=== PATIENT | female | born 1990 | race American Indian/Alaskan Native ===

== ENCOUNTER 2020-10-14 11:54 | Outpatient (CLI) | payer MEDICAID ==
[2020-10-14 15:35] VITALS: BP 111/61
== END 2020-10-14 15:42 | disposition home or self-care (01) ==
LOC: LAB 11:54 → APU 15:22 → LAB 15:42
PROVIDERS: ATTEND Obstetrics & Gynecology
DX: O26.891 Other specified pregnancy related conditions, first trimester (principal); Z67.11 Type A blood, Rh negative; Z3A.01 Less than 8 weeks gestation of pregnancy
CPT/HCPCS: 86850; 86900; 86901; 96372; J2790

== ENCOUNTER 2020-10-20 22:52 | Emergency (ER) | payer MEDICAID ==
[2020-10-20 23:07] VITALS: BP 121/76
--- NOTE | 2020-10-20 23:37 | Emergency Department Report ---
ED HPI - General Chief complaint: Vaginal Bleeding Stated complaint: POSS MISCARRIAGE Source: patient Mode of arrival: Ambulatory Limitations: No Limitations - History of Present Illness Initial comments: 30-year-old -[place] female with approximate 7 weeks 4 para 2 with 1 miscarriage presents to the emergency room stating that she woke up 30 minutes just prior to arrival with cramping and vaginal bleeding. Patient states she is probably soaked maybe 1 pad. She states that the cramps are very mild and intermittent. She reports her last menstrual period was 08/24/2020. Has had no complications up to today. In previous pregnancies no complications. Patient reports that she was seen on 10/14/2020 by my OB and receive her RhoGam injection. Patient states that she is taking her vitamins. She denies any dysuria no chest pain or shortness of breathing no malaise no headache no nausea no vomiting. MD Complaint: abdominal pain, vaginal bleeding -: minutes(s) (30) Location: pelvis Radiation: none Severity scale (0 -10): 1 Quality: cramping Consistency: intermittent Improves with: none Worsens with: none Associated symptoms: vaginal bleeding, abdominal pain. denies: nausea/vomiting, vaginal discharge, dysuria, headache, vision changes, shortness of breath, weakness Vaginal bleeding: light :: Yes Number of weeks : 7 OB History - Current : no complications OB History - Previous Pregnancies: no complications Last menstrual period: 08/24/20 Pre- care: followed by OB ([facility]) - Related Data : 4 Para: 2 Ab: 1 Home Medications Medication Instructions Recorded Confirmed Last Taken Vit-Fe Fumar-FA [ 1 tab PO QDAY 07/05/15 11/11/15 1 Day Ago Vitamin] ~10/11/15 1 tab metroNIDAZOLE [Flagyl] 500 mg PO Q12HR 11/11/15 11/11/15 Unknown Previous Rx's Medication Instructions Recorded Last Taken Type Ibuprofen [Motrin 800 MG tab] 800 mg PO Q8HR PRN #30 tablet 11/13/15 Unknown Rx oxyCODONE /ACETAMINOPHEN [Percocet 2 tab PO Q6HR PRN #30 tablet 11/13/15 Unknown Rx 5/325] Allergies Allergy/AdvReac Type Severity Reaction Status Date / Time No Known Allergies Allergy Unverified 07/05/15 22:37 ED Review of Systems ROS: Stated complaint: POSS MISCARRIAGE Other details as noted in HPI Comment: All other systems reviewed and negative Constitutional: denies: chills, fever Eyes: denies: eye pain, eye discharge, vision change ENT: denies: ear pain, throat pain Respiratory: denies: cough, shortness of breath, wheezing Cardiovascular: denies: chest pain, palpitations Endocrine: no symptoms reported Gastrointestinal: denies: abdominal pain, nausea, diarrhea Genitourinary: denies: urgency, dysuria, discharge Musculoskeletal: denies: back pain, joint swelling, arthralgia Skin: denies: rash, lesions Neurological: denies: headache, weakness, paresthesias Psychiatric: denies: anxiety, depression Hematological/Lymphatic: denies: easy bleeding, easy bruising ED Past Medical Hx - Past Medical History Hx Hypertension: No Hx Congestive Heart Failure: No Hx Diabetes: No Hx Deep Vein Thrombosis: No Hx Renal Disease: No Hx Sickle Cell Disease: No Hx Seizures: No Hx Asthma: No Hx COPD: No Hx HIV: No - Social History Smoking Status: Never Smoker - Medications Home Medications: Home Medications Medication Instructions Recorded Confirmed Last Taken Type Vit-Fe Fumar-FA [ 1 tab PO QDAY 07/05/15 11/11/15 1 Day Ago History Vitamin] ~10/11/15 1 tab metroNIDAZOLE [Flagyl] 500 mg PO Q12HR 11/11/15 11/11/15 Unknown History Ibuprofen [Motrin 800 MG tab] 800 mg PO Q8HR PRN #30 tablet 11/13/15 Unknown Rx oxyCODONE /ACETAMINOPHEN [Percocet 2 tab PO Q6HR PRN #30 tablet 11/13/15 Unknown Rx 5/325] ED Physical Exam - General Limitations: No Limitations General appearance: alert, in no apparent distress - Head Head exam: Present: atraumatic, normocephalic - Eye Eye exam: Present: normal appearance - ENT ENT exam: Present: mucous membranes moist - Neck Neck exam: Present: normal inspection - Respiratory Respiratory exam: Present: normal lung sounds bilaterally. Absent: respiratory distress - Cardiovascular Cardiovascular Exam: Present: regular rate, normal rhythm. Absent: systolic murmur, diastolic murmur, rubs, gallop - GI/Abdominal GI/Abdominal exam: Present: soft, normal bowel sounds - Extremities Exam Extremities exam: Present: normal inspection - Back Exam Back exam: Present: normal inspection - Neurological Exam Neurological exam: Present: alert, oriented X3 - Psychiatric Psychiatric exam: Present: normal affect, normal mood - Skin Skin exam: Present: warm, dry, intact, normal color. Absent: rash ED Course Vital Signs 10/20/20 23:04 Temperature 98.6 F Pulse Rate 90 Respiratory 18 Rate Blood Pressure 121/76 O2 Sat by Pulse 98 Oximetry ED Medical Decision Making - Lab Data Result diagrams: 10/20/20 23:22 10/20/20 23:22 - Radiology Data Radiology results: report reviewed [facility] [address] [place] [address] Ultrasound Report Signed Patient: AMNA ROUSE MR #: [id number] : 1990 Acct:[id number] Age/Sex: 30 / F ADM Date: 10/20/20 Loc: ED Attending Dr: Ordering Physician: SUNNY PECK Date of Service: 10/20/20 Procedure(s): US OB <= 14 weeks fetus Accession Number(s): [id number] cc: SUNNY PECK ULTRASOUND OBSTETRIC INDICATION / CLINICAL INFORMATION: 2 months with cramping and vaginal bleedi. Clinical Gestational Age (GA) in weeks, days: 8.1 TECHNIQUE: Transabdominal. COMPARISON: None available. FINDINGS: GESTATIONAL SAC: Well-defined oval shape and intrauterine in location. YOLK SAC: No significant abnormality. EMBRYO/FETUS: No significant abnormality. - [place]-Rump Length = 0.34 cm = 6.0 weeks, days - Heart Rate, beats per minute (if present) = not well seen ADNEXA: No significant abnormality. FREE FLUID: None. ADDITIONAL FINDINGS: None. IMPRESSION: 1. Single intrauterine with estimated sonographic age of 6.0 weeks, days. I am unable to definitively documented heart tones. Short-term follow-up imaging is recommended to document viability. Signer Name: Ravi Meza MD Signed: 10/21/2020 1:42 AM Workstation Name: [id number] Transcribed By: SS Dictated By: Ravi Meza MD Electronically Authenticated By: Ravi Meza MD Signed Date/Time: 10/21/20141 DD/ 0127 TD/TT: Print Cancel - Medical Decision Making 30-year-old -[place] female with approximate 7 weeks 4 para 2 with 1 miscarriage presents to the emergency room stating that she woke up 30 minutes just prior to arrival with cramping and vaginal bleeding. Patient states she is probably soaked maybe 1 pad. She states that the cramps are very mild and intermittent. She reports her last menstrual period was 08/24/2020. Has had no complications up to today. In previous pregnancies no complications. Patient reports that she was seen on 10/14/2020 by my OB and receive her RhoGam injection. Patient states that she is taking her vitamins. She denies any dysuria no chest pain or shortness of breathing no malaise no headache no nausea no vomiting. Vaginal bleeding protocol has been initiated. Critical care attestation.: If time is entered above; I have spent that time in minutes in the direct care of this critically ill patient, excluding procedure time. ED Disposition Clinical Impression: Threatened miscarriage in early Disposition: DC-01 TO HOME OR SELFCARE Is pt being admited?: No Does the pt Need Aspirin: No Condition: Stable Instructions: Vaginal Bleeding During , First Trimester, Threatened Miscarriage Additional Instructions: US shows a 6 week embryo. Recommend to follow up this week with [facility]. Return to the ER if you have any worsening bleeding with worsening pelvic cramping. Referrals: PRIMARY CARE, [Primary Care Provider] - 3-5 Days [facility] [Provider Group] - 3-5 Days Forms: Work/School Release Form(ED)
[2020-10-20 23:51] LABS: Basophils % (Auto) 0.3 % (0.0-1.8); Eosinophils # (Auto) 0.1 K/mm3 (0.0-0.4); Eosinophils % (Auto) 0.8 % (0.0-4.3); Hematocrit 34.6 % (30.3-42.9); Hemoglobin 11.4 gm/dl (10.1-14.3); Lymphocytes # (Auto) 1.9 K/mm3 (1.2-5.4); Lymphocytes % (Auto) 24.8 % (13.4-35.0); Mean Corpuscular HGB Conc 33 % (30-34); Mean Corpuscular Volume 91 fl (79-97); Monocytes # (Auto) 0.9 K/mm3 (0.0-0.8); Monocytes % (Auto) 12.1 % (0.0-7.3); Platelet Count 231 K/mm3 (140-440); Red Blood Count 3.82 M/mm3 (3.65-5.03); Red Cell Distribution Width 13.5 % (13.2-15.2)
[2020-10-21 00:08] LABS: Blood Urea Nitrogen 15 mg/dL (7-17); Calcium 9.1 mg/dL (8.4-10.2); Hemolysis Index 5
[2020-10-21 00:10] LABS: BUN/Creatinine Ratio 21
--- NOTE | 2020-10-21 01:46 | Ultrasound Report ---
ULTRASOUND OBSTETRIC INDICATION / CLINICAL INFORMATION: 2 months with cramping and vaginal bleedi. Clinical Gestational Age (GA) in weeks, days: 8.1 TECHNIQUE: Transabdominal. COMPARISON: None available. FINDINGS: GESTATIONAL SAC: Well-defined oval shape and intrauterine in location. YOLK SAC: No significant abnormality. EMBRYO/FETUS: No significant abnormality. - [place]Rump Length = 0.34 cm = 6.0 weeks, days - Heart Rate, beats per minute (if present) = not well seen ADNEXA: No significant abnormality. FREE FLUID: None. ADDITIONAL FINDINGS: None. IMPRESSION: 1. Single intrauterine with estimated sonographic age of 6.0 weeks, days. I am unable to d efinitively documented heart tones. Short-term follow-up imaging is recommended to document via bility. Signer Name: Ravi Meza MD Signed: 10/21/2020 1:42 AM Workstation Name: [id number]
== END 2020-10-21 02:00 | disposition home or self-care (01) ==
LOC: ED 22:52
DX: Z79.899 Other long term (current) drug therapy (principal)
CPT/HCPCS: 36415; 76801; 80048; 84702; 85025; 86850; 86900; 86901